=== PATIENT | male | born 1955 | race Caucasian/White ===

== ENCOUNTER 2018-08-17 11:57 | Day surgery (SDC) | payer MEDICARE, SELFPAY ==
[2018-08-12 12:17] VITALS: BMI 36.5
[2018-08-17] VITALS (10 sets, daily range): BP systolic 110–172; BP diastolic 77–93; PULSE 60–78; RESP 10–22; TEMP 36.1–36.8; O2SAT 93–98; BMI 36.5
--- NOTE | 2018-08-17 | DI.RAD.S_ITS ---
PROCEDURE: XR LUMBAR SPINE 2-3V INDICATIONS: LAMI AND SPINAL CORD STIMULATOR PLACEMENT TECHNIQUE: Fluoroscopic images were obtained during an operative procedure and submitted for interpretation following the completion of the procedure. COMPARISON: None. FINDINGS: These fluoroscopic images were performed for intraoperative localization. On these images, there is a spinal stimulator seen, which appears to be at the approximate T12 level. Please correlate with intraoperative findings. IMPRESSION: Normal intraoperative examination. Dictated by: Rebel Blake M.D. on 08/17/2018 at 16:01 Approved by: Rebel Blake M.D. on 08/17/2018 at 16:01
[2018-08-17] MEDS: LACTATED RINGERS 1,000 ML 42 ML IV ×2 (13:37→15:50)
--- NOTE | 2018-08-17 14:08 | PM.PREOP ---
Pre-operative Note Interval Note Pre-op Check: Yes History & Physical Reviewed by Physician and Yes Exam Performed Changes: No
--- NOTE | 2018-08-17 14:24 | PM.OP.1 ---
Operative Date/Time/Diagnoses Date of procedure: 08/17/18 Time of procedure: 16:51 Pre-op diagnosis: Chronic pain lumbar radiculopathy post laminectomy syndrome obesity BMI 36.5 Post-op diagnosis: same Procedure & Clinicians Procedure: laminectomy with placement of spinal cord stimulator paddle placement of a spinal cord stimulator generator initial complex programming of spinal cord stimulator Same procedure as scheduled: Yes Indications: 63 year old male with intractable pain from chronic radiculopathy. They had failed conservative management and requested operative intervention. Risks and benefits of surgery were discussed and appropriate consents were obtained. Surgeon: Felix Torres Gas Engine Operator: Shelley Ayers Anesthesia Type: General Operative Notes Findings: none Closure Type: primary Implants & Drains: [employer] Estimated Blood Loss (mL): 20 Procedure in detail: Patient was brought to the operating room and intubated on the stretcher. Time-out was performed. Preoperative antibiotics were given. They were then rolled over to the well-padded prone position on the [place] table. The back was prepped and draped in the standard sterile fashion. Using fluoroscopic guidance, a 4 cm incision was made in the midline over L2-3. We dissected out the paraspinal muscles and placed a marker to confirm our positioning. Due to his obesity, this took extensive time for the dissection. We are working through a small incision approximately 10 cm deep to do our work. This greatly increased the time and complexity of the surgery. We then performed a laminectomy at L23. We used the paddle trial and then placed our spinal cord stimulator paddle. Positioning was confirmed with x-ray to be midline. It was over L1-2 where the patient had the best response to the trial. We sewed down the wires to the deep tissue. We then made a 4 cm horizontal incision 10 cm lateral from the midline and 5 cm inferior to the tip of the iliac crest on the right side. A superficial pocket was opened up. We then used the tunneler to bring the paddle wires subcutaneously to the generator pocket. The generator was hooked up. We ran the initial programming sequences to confirm function. The wounds were irrigated. We then took an epidural catheter and primed it with 8 mL of 0.25% Marcaine and 100 mcg of fentanyl. This was carefully slid underneath the L2 lamina approximately 6 cm cephalad. We then closed the muscle fascia. The epidural was injected without resistance and the catheter was removed. We then over sewed the fascia tacking down the leads were the exited. The generator was tacked down and the pocket was closed. The dorsal fascia was closed, superficial tissue was closed, and the skin was closed. Sterile dressing was placed. There then rolled over brought to the recovery room with no complications. Complications: none Condition: stable Disposition: PACU Plan for aftercare: Outpatient. Limited bend, twist, lift for 6 weeks.
[2018-08-17] MEDS: CEFAZOLIN 2 GM/100 ML FROZ.PIGGY IV (14:47)
--- NOTE | 2018-08-17 15:24 | SUR.OPER ---
Prone on spine table, head in foam head support, padded chest and pelvic supports, gel pad at knees, lower legs supported by pillows; nipples, genitalia and toes free of pressure, arms secured on foam padded arm boards at <90 degrees abduction. Tape over blanket at thigh secured to table.
[2018-08-17] MEDS: VANCOMYCIN 1,000 MG VIAL 1000 MG TOP (15:34)
[2018-08-17] MEDS: SODIUM CHLORIDE 0.9% 1,000 ML, GENTAMICIN 80 MG IRR (15:35)
[2018-08-17] MEDS: BUPIVACAINE 0.25% (PF) 8 ML, fentaNYL 100 MCG INJ (15:35)
[2018-08-17] MEDS: HYDROMORPHONE 2 MG INJ 0.5 MG IV ×2 (17:36→17:48)
[2018-08-17] MEDS: OXYCODONE/ACETAMINOPHEN 5/325 TABLET 1 TAB PO (18:23)
== END 2018-08-17 18:10 | disposition home or self-care (01) ==
PROVIDERS: PCP Family Medicine; Visit Provider Orthopaedic Surgery
PROC: (CPT 63685; principal; 2018-08-17 14:15)
DX: G62.89 Other specified polyneuropathies (principal); M96.1 Postlaminectomy syndrome, not elsewhere classified; M54.16 Radiculopathy, lumbar region; E66.9 Obesity, unspecified; Z68.36 Body mass index [BMI] 36.0-36.9, adult; I10 Essential (primary) hypertension
CPT/HCPCS: 63685; 63655; 95972; 72100; 76001; C1776; J0330; J0690; J1100; J1170; J2250; J2405; J2704; J3010

== ENCOUNTER 2018-09-20 17:16 | Day surgery (SDC) | payer MEDICARE, SELFPAY ==
[2018-09-20] VITALS (9 sets, daily range): BP systolic 159–192; BP diastolic 85–101; PULSE 54–69; RESP 10–165; TEMP 35.8–36.4; O2SAT 97–100
--- NOTE | 2018-09-20 17:49 | PM.PREOP ---
Pre-operative Note Interval Note Pre-op Check: Yes History & Physical Reviewed by Physician and Yes Exam Performed Changes: No
[2018-09-20 18:13] LABS: Add Manual Diff / Slide Review NO; Eosinophils Percent Auto 16.2 % (2-4); Hematocrit 27.6 % (41-53); Hemoglobin 9.1 g/dL (13.5-17.5); Lymphocytes Percent Auto 20.8 % (25-40); Mean Corpuscular HGB Conc 33.1 % (30-36); Mean Corpuscular Hemoglobin 28.9 PG (26-34); Mean Corpuscular Volume 87.2 fL (80-100); Monocytes Percent Auto 8.6 % (3-14); Neutrophils Absolute Auto 2800 /uL (3000-5900); Neutrophils Percent Auto 53.4 % (50-75); Platelet Count 202 X10^3/uL (150-400); Red Blood Cell Count 3.16 X10^6/uL (4.5-5.9); Red Cell Distribution Width 14.5 % (11.6-14.8); White Blood Cell Count 5.3 X10^3/uL (4.5-11.0)
[2018-09-20 18:31] LABS: Erythrocyte Sedimentation Rate 39 MM/HR (0-15)
[2018-09-20 18:32] LABS: BUN Creatinine Ratio 21.1 (6-22); Blood Urea Nitrogen 19 mg/dL (9-20); C-Reactive Protein Quant 0.6 mg/dL (<1.0); Calcium 8.5 mg/dL (8.4-10.2); Carbon Dioxide 25 mmol/L (22-32); Chloride 104 mmol/L (98-107); Estimated Glomerular Filt Rate > 60.0 mL/min (>60); Glucose 88 mg/dL (80-110); HEMOLYSIS < 15 (0-50); Potassium 4.3 mmol/L (3.4-5.1); Sodium 141 mmol/L (137-145)
[2018-09-20] MEDS: LACTATED RINGERS 1,000 ML 42 ML IV (18:36)
[2018-09-20] MEDS: SODIUM CHLORIDE 0.9% 1,000 ML, GENTAMICIN 80 MG IRR (19:14)
--- NOTE | 2018-09-20 19:16 | SUR.OPER ---
2 grams ancef given by anesthesia per surgeon at 19:06.
[2018-09-20] MEDS: fentaNYL 100 MCG/2 ML INJ 50 MCG IV ×3 (19:45→20:18)
--- NOTE | 2018-09-20 19:45 | PM.OP.1 ---
Operative Date/Time/Diagnoses Date of procedure: 09/20/18 Time of procedure: 19:45 Pre-op diagnosis: postop wound infection Post-op diagnosis: same Procedure & Clinicians Procedure: Incisional debridement and washout of superficial and deep lumbar spine wound Same procedure as scheduled: Yes Indications: 63-year-old male status post placement of a spinal cord stimulator. He had return to clinic with dehiscence of his wound. It was still draining even with oral antibiotics and the decision was made to take him to the operating room for debridement. Surgeon: Felix Torres Click Yes if Unassisted: Yes Anesthesia Type: General Operative Notes Findings: 20 mL serous fluid pocket in the superficial tissue Closure Type: primary Specimen(s): other (Wound cultures) Estimated Blood Loss (mL): 5 Procedure in detail: Patient brought to the operating room and intubated on the stretcher. He was rolled over to the well-padded prone position on the [place] table. Preoperative antibiotics were held for cultures. Time-out was performed. The back was prepped and draped in standard sterile fashion. We opened up his wound. There was a little bit of drainage in the very superficial tissue. However, when we went deeper, still through the superficial tissue, there was an approximately 20 mL fluid pocket of clear and just slightly yellow serous fluid. This was cultured and sent to the laboratory. At this point he was given his 2 g of Ancef. We continued debriding this. We used a sharp Garcia to debride all the soft tissue. There did not appear to be any necrotic tissue but just 10 cm of fat tissue between the skin and the muscle fascia. The wound was irrigated. We then examined the deep tissue. I opened the fascia a little bit but no drainage was in the deep area. This also was irrigated. We closed the deep. We made several layers and closing through his superficial fat tissue. The superficial And the skin were closed. A lexy dressing was placed. He was rolled over extubated brought to recovery room with no complications. Complications: none Condition: stable Disposition: PACU Plan for aftercare: We will treat him as an outpatient as there did not appear to be anything deep. I am going to start him on Levaquin for broad coverage antibiotics with good deep penetration. Follow-up later this week.
[2018-09-20] MEDS: OXYCODONE/ACETAMINOPHEN 5/325 TABLET 1 TAB PO (20:16)
[2018-09-20] MEDS: LORazepam 2 MG/ML SYRINGE 0.25 MG IV (20:27)
--- NOTE | 2018-09-20 20:38 | SUR.PHASEI ---
Pt c/o anxiety, medicated with lorazepam.
== END 2018-09-20 21:07 | disposition home or self-care (01) ==
PROVIDERS: PCP Family Medicine; Visit Provider Orthopaedic Surgery
PROC: (CPT 10180; principal; 2018-09-20 17:30)
DX: T81.41XA Infection following a procedure, superficial incisional surgical site, initial encounter (principal); Z96.89 Presence of other specified functional implants; I10 Essential (primary) hypertension; G89.29 Other chronic pain; G62.9 Polyneuropathy, unspecified
CPT/HCPCS: 10180; 36415; 80048; 85025; 85651; 86140; 87070; 87075; 87077; 87147; 87186; 87205; J0330; J2060; J2405; J2704; J3010